=== PATIENT | male | born 2000 | race Caucasian/White ===

== ENCOUNTER 2024-02-22 21:26 | Inpatient (IN) | payer BC, SELFPAY ==
[2024-02-22 17:49] VITALS: BP 163/94; BMI 43.5
[2024-02-22 18:11] LABS: % Basophils 0.4 % (0-2); % Eosinophils 0.3 % (0-6); % Immature Granulocytes 0.9 % (0-0.5); % Lymphocytes 9.4 % (20.5-51.1); % Monocytes 9.1 % (1.7-9.3); % Neutrophils 79.9 % (42.2-75.2); Absolute Basophils 0.1 10^3/uL (0-0.2); Absolute Eosinophils 0.1 10^3/uL (0-0.7); Absolute Immature Granulocytes 0.2 10^3/uL (0-0.05); Absolute Lymphocytes 1.7 10^3/uL (1.2-3.4); Absolute Monocytes 1.6 10^3/uL (0.1-0.6); Absolute Neutrophils 14.1 10^3/uL (1.4-6.5); Hemoglobin 14.2 g/dL (13.0-18.0); Mean Corpuscular Hgb 29.8 pg (27.0-31.0); Mean Corpuscular Volume 90.3 fL (80.0-94.0); Mean Platelet Volume 12.2 fL (7.4-10.4); Nucleated Red Blood Cells % 0 % (-); Platelet Count 294 10^3/uL (130-400); Red Blood Cell Count 4.76 10^6/uL (4.70-6.10); Red Cell Dist. Width 12.9 % (11.5-14.5); White Blood Cell Count 17.6 10^3/uL (4.8-10.8)
[2024-02-22 18:20] LABS: ALT (SGPT) 48 U/L (0-50); AST (SGOT) 48 U/L (17-59); Albumin 3.6 g/dl (3.5-5.0); Alkaline Phosphatase 95 U/L (38-126); Blood Urea Nitrogen 14 mg/dl (9-20); Carbon Dioxide 25 mmol/L (22-30); Chloride 102 mmol/L (98-107); Estimated Creatinine Clearance > 125 ml/min; Glucose 129 mg/dl (70-99); Potassium 4.8 mmol/L (3.5-5.1); Sodium 134 mmol/L (135-145); Total Bilirubin 1.4 mg/dl (0.2-1.3); Total Protein 6.2 g/dl (6.3-8.2); eGFR > 60.00
--- NOTE | 2024-02-22 20:11 | ED.GENMED ---
History of Present Illness
General
Chief Complaint: Breathing Problem
Source: patient
Exam Limitations: none
Time Seen by Provider: 02/22/24 19:50
Travel History
Have you had any contact with someone who has COVID-19?: No
Do you have any symptoms of coronavirus? Fever > 100 degrees, chills, cough, shortness of breath, sore throat, loss of taste or smell, muscle aches, or headache?: No
History of Present Illness
History of Present Illness:
This is a 23 year old male that comes in with c/o SOB. States that he started 2 weeks ago with feeling at night that he was wheezing and crackling in his lungs. States that he went to and was told that he had Bronchitis and place on Zithromax and
a steroid taper. States that he is feeling worse. States that he is very SOB. States that he finished the Z-pack a week ago. States that he has had a fever with chills, SOB and cough, diarrhea. Denies any chest pain, abd pain, nausea, vomiting,
headache, dizziness, urinary burning.
Past History
Past History
ED Past Medical History: None
ED Past Surgical History: None
Social History
Tobacco: Vaping
Alcohol: Occasional
Drug: None
Personal: Single
Living: with family
Employment: Employed
Review of Systems
Review of Systems
All Other Systems: ROS reviewed and negative except as documented in HPI and ROS
Constitutional: Reports fever and chills
EENT: Reports no symptoms
Respiratory: Reports cough and trouble breathing
Cardiac: Denies chest pain
ABD/GI: Reports diarrhea; Denies abdominal pain, nausea or vomiting
: Reports no symptoms; Denies dysuria, frequency or urgency
Musculoskeletal: Reports no symptoms
Skin: Reports no symptoms
Neurological: Reports no symptoms; Denies dizzy or headache
Psychiatric: Reports no symptoms
Phy Exam
General Physical Exam
General Presentation: mild distress
General age: appears stated age
General Skin: cool and other (Clammy)
General Habitus: obese
General Mental: alert
General Hydration: appears well hydrated
ENT Exam
ENT Exam: TM's normal, pharynx normal and neck supple
Eye Exam
Eye Exam: EOMI
Cardiovascular Exam
Cardiovascular Exam: no edema, no murmur, normal peripheral pulses and tachycardia
Pulmonary Exam
Pulmonary Exam: no rales, chest non tender, no crackles, no rhonchi and other (faint exp wheezing right sided, Cough noted)
Gastrointestinal Exam
Gastrointestinal Exam: normal bowel sounds, non tender, soft, no organomegaly, no pulsatile mass, non distended and other (Obese)
Musculoskeletal Exam
Musculoskeletal Exam: full ROM and no edema
Skin Exam
Skin Exam: normal color, warm/dry, no rash and no petechia
Psychiatric Exam
Psychiatric Exam: normal mood/affect
Course
Orders/Labs/Results
Orders:
Orders
02/22/24 17:48
CR Chest - 2 Views Urgent
Comment:
Reason For Exam: shortness of breath
02/22/24 17:53
EKG [Electrocardiogram (*1)] Urgent
Reason for Study: Shortness of Breath
EKG- Treatment ONCE
02/22/24 18:01
Complete Blood Count/With Diff Urgent
Comprehensive Metabolic Panel Urgent
02/22/24 20:10
LevoFLOXacin 500 MG/100 ML [Levaquin] 500 mg in 100 ml IV NOW
02/22/24 20:38
0.9% Sodium Chloride 1000 ml [Nss] 1,000 ml IV BOLUS
Acetaminophen [Tylenol] 1,000 mg PO NOW STA
02/22/24 20:45
Admit/Transfer Patient As Directed
Co-Sign Provider:
Level of Care: Inpatient admission
Assign to:: Telemetry
Physician / Group: Uziel
Diagnosis: Pneumonia, Sepsis
Reason for Telemetry: Arrhythmia
Date to Stop Telemetry: 02/25/24
Time to Stop Telemetry: 11:00
Reason for Hospitalization: Pneumonia, Sepsis
Expected length of stay greater than two midnights?: Yes
ELOS- Estimated Length of Stay in days: 3
I certify the patient meets the requirements for IP care: Yes
02/22/24 20:46
Code Status As Directed
Resuscitation Status: Full Code
02/22/24 20:51
COVID-19 Antigen Urgent
Source: Nasal Swab
Lactic Acid Urgent
Blood Culture Q30M
BABAK Source: Blood/Venous
Specimen Description:
Blood Culture Q30M
BABAK Source: Blood/Venous
Specimen Description:
Influenza A+B Rapid Molecular Urgent
BABAK Source: Nasal Swab
Specimen Description:
02/22/24 23:00
0.9% Sodium Chloride 1000 ml [Nss] 1,000 ml IV 150 mls/hr
Acetaminophen [Tylenol] 650 mg PO Q4HPRN PRN
Albuterol Nebs [Ventolin Nebules] 2.5 mg INH R Q4HPRN PRN
Ketorolac [Toradol] 15 mg IV Q6HPRN PRN
Promethazine/Codeine [Phenergan with Codeine Syrup] 5 ml PO Q4HPRN PRN
02/22/24 23:00
TSH Reflex To Free T4 Routine
Legionella Urinary Antigen Routine
BABAK Source: Urine
Specimen Description:
Sputum Culture [Respiratory Culture/Gram Stain] Routine
BABAK Source: Sputum
Specimen Description:
Strep pneumoniae Antigen Routine
BABAK Source: Urine
Specimen Description:
Activity As Directed
Activity Level: Ambulate
EKG with chest pain [ECG as needed] As Directed
ECG as needed for:: Chest Pain
I/O [Intake/ Output] As Directed
Frequency: Per unit guidelines
Vital Signs As Directed
Frequency: Per unit guidelines
Chest PT [Rx Chest Pt] [RESP] Routine
Special Instructions: BID
Oxygen Therapy [O2 Therapy] [RESP] Routine
Titrate/Wean O2 to maintain O2 sat greater than (%): 94
DX Deep Vein Thrombosis Video Routine
02/23/24 02:00
Piperacillin/Tazo 4.5 Gram [Zosyn] 4.5 gram in 100 ml IV Q6H
02/23/24 Breakfast
Regular
At Your Request: Full Participation
Basic Metabolic Panel IN AM
Complete Blood Count/No Diff IN AM
LFT [Zzwjq-Kpjw-Ogbolhi] IN AM
02/23/24 08:00
Guaifenesin [Mucinex] 1,200 mg PO Q12
02/23/24 18:00
Enoxaparin Sodium [Lovenox] 40 mg SC QPM
02/25/24 11:00
DC Protocol for Telemetry ONCE
Abnormal Lab Results
02/22/24
18:01
WBC 17.6 H 10^3/uL
(4.8-10.8)
MPV 12.2 H fL
(7.4-10.4)
Abs Immat Gran (auto) 0.2 H 10^3/uL
(0-0.05)
Absolute Neuts (auto) 14.1 H 10^3/uL
(1.4-6.5)
Absolute Monos (auto) 1.6 H 10^3/uL
(0.1-0.6)
Immature Gran % 0.9 H %
(0-0.5)
Neutrophils % 79.9 H %
(42.2-75.2)
Lymphocytes % 9.4 L %
(20.5-51.1)
Sodium 134 L mmol/L
(135-145)
Glucose 129 H mg/dl
(70-99)
Total Bilirubin 1.4 H mg/dl
(0.2-1.3)
Total Protein 6.2 L g/dl
(6.3-8.2)
02/22/24 18:01
02/22/24 18:01
Leukocytosis, glucose nonfasting. lactic acid 1.2
Vital Signs
Initial and Last Documented VS:
Initial Vital Signs
Temp Pulse Resp BP Pulse Ox
99.5 F 144 16 163/94 96
02/22/24 17:49 02/22/24 17:49 02/22/24 17:49 02/22/24 17:49 02/22/24 17:49
Last Documented Vital Signs
Temp Pulse Resp BP Pulse Ox
98.3 F 127 24 156/101 95
02/22/24 23:02 02/22/24 23:02 02/22/24 23:02 02/22/24 23:02 02/22/24 23:02
MDM/Problems Addressed
Differential Diagnosis Includes:
PNA,
MDM/Problems Addressed:
This is a 23 year old male that comes in with SOB. States that he has been sick for 2 weeks with wheezing and Crackling. States that he went to and was told that he had Bronchitis. States that he as given Zithromax and steroid taper. States that
he is feeling worse ad is SOB with a cough.
Will get labs and X-ray.
Explained to patient that he will be admitted. Explained that he has an upper and lower lobe Pneumonia. Will start on IV antibiotics and admit. Hospitalist notified.
Chronic conditions affecting care:
NA
Acute Exacerbation and/or Progression of Chronic Illness:
NA
*Radiology
Radiology exam reviewed: radiology read reviewed (Chest- Findings suggesting moderate right upper and lower lobe Pneumonia. Clinical and laboratory correlation recommended. Mild cardiomegaly. This may be projectional. The patient was imaged in a
slightly lordotic position. )
*Pulse Oximetry
Patient hypoxic: no
*EKG
Heart Rate: 142
Rate: tachycardiac
Rhythm: sinus tachycardia
[place]: normal axis
Interval: normal interval
QRS Pattern: normal QRS
Ischemia: T-wave inversion (aVL, V4, V5, V6)
*Financial Analyst Accountant Interpretation
Rate: tachycardiac
Interpretation: normal
Heart Rate: 139
Rhythm: sinus tachycardia
*Critical Care Note
Total Time (30-74mins, 75-104mins- exclusive of procedures): Not Applicable
ED Attending Note
-
Portions of this chart may have been created with voice recognition software.� Occasional wrong word or��sound alike� substitutions may have occurred due to the inherent limitations of voice recognition software.
Discharge Plan
Departure
Patient Disposition: Admit
Date of Disposition: 02/22/24
Time of Disposition: 20:23
Admit to: Telemetry
Presentation/result/management discussed w/ accepting MD/DO: Hospitalist
Patient with high blood pressure during this ER visit?: Yes
Condition: Good
Discharge Problem:
right upper and lower lobe Pneumonia
Interventions
Interventions:
*Risk Screen - Suicide Last Done: 02/22/24 17:49
*General Assessment Last Done: 02/22/24 17:49
*Neglect/Abuse Screening Last Done: 02/22/24 21:03
ED- Fall Risk Assessment Last Done: 02/22/24 22:44
*ED COVID-19 Vaccine History Last Done: 02/22/24 17:49
*Nursing Disposition Last Done: 02/22/24 22:44
ED- Cardiac Assessment Last Done: 02/22/24 21:58
ED- Pulmonary Assessment Last Done: 02/22/24 21:58
Discharge Date and Time
Discharge Date/Time: 02/22/24 22:45
[2024-02-22 20:18] VITALS: BP 143/99
--- NOTE | 2024-02-22 20:51 | HPS.HSE ---
Family Physician
-
Family Physician: * NONE
Chief Complaint
-
Fever, Cough, Body Aches
History of Present Illness
Patient is a 23y M with no significant PMH who presents to ED complaining of fevers, chills, cough and malaise. Patient states that his symptoms started about 2 weeks ago. He notes that his symptoms are worse at night and in the AM. He has had
difficulty sleeping due to cough and dyspnea when attempting to lie flat. Patient states that his girlfriend tested positive for influenza 2 weeks ago as well. He was seen at an Urgent Care and diagnosed with bronchitis. He was prescribed
azithromycin and prednisone and completed both - last doses were about one week ago. Patient states that he felt improved from about 2 days; however, his symptoms then returned.
Patient presents to the ED for continued / worsening symptoms despite outpatient therapy.
He denies any recent travel.
He does use a vape daily. 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
Medical History
Past Medical History
Past Medical History: Reports Other
Additional Past Medical History:
Obesity
Pneumonia at 8 years old requiring hospitalization - ? laterality
Past Surgical History: Reports None
Social History
Tobacco: Vaping (Daily)
Alcohol: Occasional
Drug: None
Family History
Family History: Other (Father: HTN Mother: CVA)
Allergies / Home Medications
Allergies reflects when Allergies were last updated in [employer].
Home Medications with original date entered in [employer]
Allergy/Medication List:
Allergies
Allergy/AdvReac Type Severity Reaction Status Date / Time
No Known Allergies Allergy Verified 06/22/22 16:27
Home Medications
No Meds [No Current Medications] 02/22/24
Review of Systems
-
History Source: Patient
A 12 point ROS was completed and negative except as noted: Yes
Constitutional: Reports Fever, Fatigue and Chills
EENT: Reports Sore Throat and Runny Nose
Respiratory: Reports Cough and Trouble Breathing
Cardiac: Reports Diaphoresis; Denies Chest Pain or Palpitations
Abdomen/GI: Denies Abdominal Pain, Nausea, Vomiting or Diarrhea
: Denies Dysuria or Frequency
Musculoskeletal: Reports Muscle Pain; Denies Joint Pain or Edema
Neurological: Reports Headache; Denies Dizzy
Psych: Denies Depression or Anxiety
Physical Exam
Vital Signs
Vital Signs
Temp Pulse Resp BP Pulse Ox
101.9 F H 140 28 143/99 96
02/22/24 20:18 02/22/24 20:18 02/22/24 20:18 02/22/24 20:18 02/22/24 20:18
Physical Exam
General: Other (23y M in mild distress due to cough and dyspnea.)
HEENT: Other (Thick neck. No adenopathy appreciated.)
Respiratory: Other (Coarse rhonchi on the R about 2/3 up. No wheezes.)
Cardiac: S1/S2, Regular Rhythm and Tachycardia; No Murmur
GI: Soft, Non Tender, Non Distended and Normal Bowel Sounds
Musculoskeletal: No Clubbing, No Cyanosis and No Edema
Neuro: AO x 3
Laboratory Results
-
02/22/24 18:01
02/22/24 18:01
Laboratory Results
Total Bilirubin 1.4 mg/dl (0.2-1.3) H 02/22/24 18:01
AST 48 U/L (17-59) 02/22/24 18:01
ALT 48 U/L (0-50) 02/22/24 18:01
Alkaline Phosphatase 95 U/L (38-126) 02/22/24 18:01
Impression/Plan
-
A/P: Patient is a 23y M with no significant PMH who presents to ED complaining of fevers / chills, cough and dyspnea x 2 weeks.
Right Pneumonia
Sepsis secondary to the above
- Admit for further evaluation and treatment.
- Patient presents with temp = 101.9, HR = 140, RR = 28 and WBC = 17.6 with CXR and clinical history consistent with pneumonia.
- IV abx with Zosyn for now.
- Follow up culture data / antigen testing, etc and adjust regimen as needed.
- Check COVID / influenza status now.
- Suspect initial influenza with ? secondary bacterial pneumonia - especially given known sick contact and clinical course.
- Supportive measures including mucolytics, nebs, supplemental O2 if needed, etc.
- IVF support, antipyretics.
- Follow for clinical improvement and transition to PO abx regimen when appropriate.
- Monitor for any new / worsening symptoms.
Morbid Obesity
- Affects all aspects of care and specifically increase risks of viral pneumonias, respiratory compromise, etc.
- Encourage healthy diet and increased activity with goal of weight loss.
Vaping
- As noted above - affects overall respiratory health and increases risks of severe disease in setting of pulmonary infections, etc.
- Encourage attempts at cessation.
Abnormal Cardiac Silhouette
- CXR with rounded appearance of cardiac silhouette. No prior for comparison.
- Current symptoms, labs, etc seem clearly consistent with infectious process as noted above.
- Consider outpatient evaluation including Echo, etc for further evaluation.
DVT Prophylaxis: Lovenox
Code Status: Full
[2024-02-22] MEDS: TYLENOL 1000 MG PO (20:52)
[2024-02-22] MEDS: NSS 1000 IV ×2 (20:56→23:17)
[2024-02-22] MEDS: LEVAQUIN 100 IV (20:56)
[2024-02-22 21:13] LABS: Lactic Acid 1.2 mmol/L (0.7-2.0)
[2024-02-22 21:32] LABS: COVID-19 Antigen Negative (Negative)
[2024-02-22 23:00] VITALS: BMI 44.2
[2024-02-22 23:02] VITALS: BP 156/101
[2024-02-22] MEDS: PHENERGAN WITH CODEINE SYRUP 5 ML PO (23:50)
[2024-02-23] MEDS: NICORETTE 2 MG PO ×6 (00:05→23:20)
[2024-02-23] MEDS: ZOSYN 100 IV ×4 (01:25→19:49)
[2024-02-23 03:28] VITALS: BP 165/95
[2024-02-23] MEDS: TORADOL 15 MG IV (03:37)
[2024-02-23] MEDS: VENTOLIN NEBULES 2.5 MG INH ×2 (03:45→17:58)
[2024-02-23] MEDS: PHENERGAN WITH CODEINE SYRUP 5 ML PO ×2 (04:14→16:13)
--- NOTE | 2024-02-23 04:42 | PTCARENOTE ---
Pt admitted to unit from ED. Pt ambulated self with nursing staff to bed. [id number]. Pt reported 'I was short of breath laying flat on my couch and when I move around at home then it resolves.' Pt also reported pain of 'my diaphragm because of my
coughing. It feels like drowning because of fluid in my lungs.' Pt reports on admission pain meets acceptable level. Strong, dry, frequent cough. PRN cough medication administered. Pt denies SOB. Pt oriented to room with call myers in reach. Plan of
care ongoing.
[2024-02-23] MEDS: NSS 1000 IV ×5 (06:27→21:52)
[2024-02-23 07:23] LABS: Glucose - Point of Care 102 mg/dl (70-99)
[2024-02-23 07:28] LABS: Hematocrit 37.5 % (39.0-52.0); Hemoglobin 12.7 g/dL (13.0-18.0); Mean Corp Hgb Conc. 33.9 g/dL (33.0-37.0); Mean Corpuscular Volume 88.7 fL (80.0-94.0); Mean Platelet Volume 12.7 fL (7.4-10.4); Platelet Count 242 10^3/uL (130-400); Red Blood Cell Count 4.23 10^6/uL (4.70-6.10); Red Cell Dist. Width 13.2 % (11.5-14.5); White Blood Cell Count 15.6 10^3/uL (4.8-10.8)
[2024-02-23 07:30] VITALS: BP 121/91
[2024-02-23 08:24] LABS: TSH Reflex To Free T4 1.71 uIU/ml (0.47-4.68)
[2024-02-23 08:25] LABS: ALT (SGPT) 36 U/L (0-50); AST (SGOT) 29 U/L (17-59); Alkaline Phosphatase 82 U/L (38-126); Blood Urea Nitrogen 9 mg/dl (9-20); Calcium 8.6 mg/dl (8.4-10.2); Carbon Dioxide 22 mmol/L (22-30); Chloride 104 mmol/L (98-107); Direct Bilirubin 0.7 mg/dl (0.0-0.4); Estimated Creatinine Clearance > 125 ml/min; Glucose 110 mg/dl (70-99); Potassium 4.2 mmol/L (3.5-5.1); Sodium 135 mmol/L (135-145); Total Bilirubin 1.8 mg/dl (0.2-1.3); Total Protein 5.6 g/dl (6.3-8.2); eGFR > 60.00
[2024-02-23] MEDS: MUCINEX 1200 MG PO ×2 (08:51→19:49)
[2024-02-23 11:00] VITALS: BP 139/96
[2024-02-23] MEDS: TYLENOL 650 MG PO ×3 (12:02→22:09)
--- NOTE | 2024-02-23 14:39 | CM ---
Patient seen at bedside with physician. Patient indicated that he lived with his mother and father in a 2 story home. Patient has no DME at home. 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 Patient uses the [facility] in [place] and he is independent of
ALD's and IADL's. Patient family present and supportive. Patient indicated that he is planning to go home with no needs. CM with no needs anticipated.
Plan; home with no needs.
[2024-02-23 15:30] VITALS: BP 143/93
[2024-02-23] MEDS: LOVENOX 40 MG SC (17:48)
--- NOTE | 2024-02-23 18:48 | W.PN.UPDATE ---
Update Note
Progress Note Update
I received a test from patient's nurse at 6:22 PM stating that patient's heart rate was 140s for the last hour, but was tachycardic all day in the 120s, and that he had just received albuterol for shortness of breath (the HR 140s had started prior
to the Albuterol). Patient sinus tach on tele. At time of this event, patient afebrile, blood pressure noted to be 97/67, HR in the 140s, oxygen saturation 95% on room air.
2 liters of IV fluids bolus wide open ordered.
I saw and examined the patient. He reported more cough and wheezing. Brown-colored sputum on napkin. He denied chest pain or any personal or family history of blood clots. Well criteria for Pulmonary Embolism was 1.5 -- low probability for PE. On
exam some wheezing and rhonchi. Ordered D-Dimer, stat EKG, stat CXR, troponins, CBC, CMP, Mag, Phos, Lactic Acid.
If D-Dimer elevated then will need to consider CTA to check for PE.
Discussed with both daytime and nighttime nurse and they will be in touch with night house provider to follow-up on the patient and the above work-up.
[2024-02-23 19:09] LABS: % Basophils 0.2 % (0-2); % Eosinophils 0.1 % (0-6); % Immature Granulocytes 0.7 % (0-0.5); % Lymphocytes 6.7 % (20.5-51.1); % Monocytes 8.8 % (1.7-9.3); % Neutrophils 83.5 % (42.2-75.2); Absolute Immature Granulocytes 0.1 10^3/uL (0-0.05); Absolute Lymphocytes 1.1 10^3/uL (1.2-3.4); Absolute Monocytes 1.5 10^3/uL (0.1-0.6); Absolute Neutrophils 13.8 10^3/uL (1.4-6.5); Hematocrit 35.9 % (39.0-52.0); Hemoglobin 12.4 g/dL (13.0-18.0); Mean Corp Hgb Conc. 34.5 g/dL (33.0-37.0); Mean Corpuscular Volume 86.9 fL (80.0-94.0); Mean Platelet Volume 12.3 fL (7.4-10.4); Nucleated Red Blood Cells % 0 % (-); Platelet Count 263 10^3/uL (130-400); Red Blood Cell Count 4.13 10^6/uL (4.70-6.10); Red Cell Dist. Width 13.1 % (11.5-14.5); White Blood Cell Count 16.5 10^3/uL (4.8-10.8)
[2024-02-23 19:20] LABS: Lactic Acid 1.2 mmol/L (0.7-2.0)
[2024-02-23 19:22] LABS: D-Dimer 1.01 ug/mlFEU (0.00-0.50)
[2024-02-23 19:24] VITALS: BP 102/70
--- NOTE | 2024-02-23 19:26 | PTCARENOTE ---
patient heart rate sustaining in 140's around 1745. pt reports difficulty breathing. respiratory notified for prn breathing treatment. MD notified about pt current condition. pt denies any chest pain at this time. pt coughing up brown tinged spit.
MD came up to assess pt and ordered received. continue to monitor
[2024-02-23 19:28] LABS: ALT (SGPT) 35 U/L (0-50); AST (SGOT) 32 U/L (17-59); Albumin 2.9 g/dl (3.5-5.0); Alkaline Phosphatase 83 U/L (38-126); Blood Urea Nitrogen 10 mg/dl (9-20); Calcium 8.2 mg/dl (8.4-10.2); Carbon Dioxide 19 mmol/L (22-30); Chloride 101 mmol/L (98-107); Estimated Creatinine Clearance > 125 ml/min; Glucose 128 mg/dl (70-99); Magnesium 1.6 mg/dl (1.6-2.3); Phosphorus 3.5 mg/dl (2.5-4.5); Potassium 3.7 mmol/L (3.5-5.1); Sodium 129 mmol/L (135-145); Total Bilirubin 1.6 mg/dl (0.2-1.3); Total Protein 5.5 g/dl (6.3-8.2); eGFR > 60.00
[2024-02-23 23:30] VITALS: BP 147/94
[2024-02-24] VITALS (9 sets, daily range): BP systolic 126–150; BP diastolic 77–132
[2024-02-24] MEDS: TYLENOL 650 MG PO ×4 (02:16→23:06)
[2024-02-24] MEDS: NICORETTE 2 MG PO ×3 (02:16→12:54)
[2024-02-24] MEDS: ZOSYN 100 IV ×2 (02:17→11:08)
--- NOTE | 2024-02-24 02:26 | W.PN.UPDATE ---
Update Note
Progress Note Update
D-Dimer noted of 1.1, CT chest ordered to rule out PE. CT chest neg for PE.
Patient continuos to have cough and fever, elevated WBC's, CT chest shows B/L pneumonia, severe on Right.
Patient seen and evaluated. reports cough and mild right side anterior lower chest pain due to cough started since two weeks.
mild shortness of breath lying flat.
Troponin elevated likely due to tachycardia, Sepsis?
Will consult ID.
[2024-02-24 03:15] LABS: Troponin I 0.896 ng/ml
[2024-02-24] MEDS: NSS 1000 IV ×2 (03:53→12:12)
[2024-02-24 07:01] LABS: Hemoglobin 12.5 g/dL (13.0-18.0); Mean Corp Hgb Conc. 33.8 g/dL (33.0-37.0); Mean Corpuscular Hgb 29.9 pg (27.0-31.0); Mean Corpuscular Volume 88.5 fL (80.0-94.0); Mean Platelet Volume 13.1 fL (7.4-10.4); Platelet Count 258 10^3/uL (130-400); Red Blood Cell Count 4.18 10^6/uL (4.70-6.10); Red Cell Dist. Width 13.1 % (11.5-14.5); White Blood Cell Count 17.7 10^3/uL (4.8-10.8)
[2024-02-24 07:30] LABS: ALT (SGPT) 39 U/L (0-50); AST (SGOT) 49 U/L (17-59); Albumin 2.9 g/dl (3.5-5.0); Alkaline Phosphatase 85 U/L (38-126); Blood Urea Nitrogen 8 mg/dl (9-20); Calcium 8.3 mg/dl (8.4-10.2); Carbon Dioxide 17 mmol/L (22-30); Chloride 106 mmol/L (98-107); Estimated Creatinine Clearance > 125 ml/min; Glucose 109 mg/dl (70-99); Magnesium 1.7 mg/dl (1.6-2.3); Potassium 4.4 mmol/L (3.5-5.1); Sodium 131 mmol/L (135-145); Total Bilirubin 1.9 mg/dl (0.2-1.3); Total Protein 5.4 g/dl (6.3-8.2); eGFR > 60.00
[2024-02-24] MEDS: MUCINEX PO ×2 (11:08→11:17)
--- NOTE | 2024-02-24 11:51 | CON.ID ---
Consultation
-
Date/Time Consultation Requested: 02/24/24 6:14
Date/Time Consultation Performed: 02/24/24 11:52
Requesting Provider: Shelton LUCIANO
Performing Provider: Dr Leroy
Reason for Consultation: pneumonia, Febrile
Chief Complaint / Past History
Chief Complaint
Fever, Cough, Body Aches
History of Present Illness
Mr Mcmillan is a 23 year old male with past medical history notable for class 3 obesity who presented here for a two week history of fever, chills, cough and malaise. Symptoms are worse at night with + orthopnea. Girlfriend tested positive for
influenza 2 weeks ago. Patient went to urgent care a week ago, given azithromycin and predinsone, improved for about two days then progressively worsened. Of note patient vapes daily. 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
Since arrival here he has been spiking fevers to 102.7 - increasing fever curve despite zosyn, bp stable, currently saturating well on room air, wbc on arrival 17.6, today 17.7, hgb 12.5, plt 258, L shfift has increased since admission, eosinophlis
on the differential have declined, D-dimer 1.01, cr 0.8, lactic acid 1.2, he has developed a troponin leak currently 1.92 and a repeat is pending, t bili 1.9, ast 49, alt 39, alk phos 85, covid ag neg, CT chest PE study: no PE, bilateral pneumonia -
severe on the right, moderate mediastinal lymphadenopathy. Currently on zosyn, had a single dose of levaquin the evening of 02/21. Sputum culture ordered but not yet obtained, blood cultures x2 in progress, no growth to date. S pneumo and
legionella urine antigens were ordered but not yet done. Sputum culture ordered and has not yet been produced. Had a single dose of levaquin and has been maintained on zosyn since then. Fevers ongoing. ID is consulted for assistance with
management.
Past History
Additional Past Medical History:
pneumonia - age 8
Past Surgical History: None
Allergy History:
No Known Allergies Allergy (Verified 06/22/22 16:27)
Medications Reviewed: Yes
Social History
Tobacco: Vaping
Alcohol: Occasional
Drug: None
Family History
Family History: Not Pertinent
Review of Systems
Review of Systems
General: Fever and Chills
All systems: All other systems were reviewed and were negative
Vital Signs
Temp Pulse Resp BP Pulse Ox
100.1 F 141 17 126/77 95
02/24/24 11:25 02/24/24 11:25 02/24/24 11:25 02/24/24 11:25 02/24/24 11:25
Physical Exam
Physical Exam
Constitutional: No Acute Distress and Obese
Pharynx: Other (voice quite hoarse)
Cardiovascular: Regular Rate and S1/S2; Negative Murmur or Rub
Pulmonary: Clear, Symmetric and Other (chest sounds tight, coughing during my exam - mildly productive of purulent appearing sputum); Negative Wheezes, Rales or Rhonchi
Gastrointestinal: Soft, Non Tender, Non Distended and Normal Bowel Sounds
Skin: Warm and Dry; Negative Rash or Jaundice
Neurological: Awake
Lab / Diagnostic Study Results
02/24/24 06:27
02/24/24 06:27
Abs Immat Gran (auto) 0.1 10^3/uL (0-0.05) H 02/23/24 19:01
Absolute Neuts (auto) 13.8 10^3/uL (1.4-6.5) H 02/23/24 19:01
Absolute Lymphs (auto) 1.1 10^3/uL (1.2-3.4) L 02/23/24 19:01
Absolute Monos (auto) 1.5 10^3/uL (0.1-0.6) H 02/23/24 19:
Absolute Basos (auto) 0.0 10^3/uL (0-0.2) 02/23/24 19:
Immature Gran % 0.7 % (0-0.5) H 02/23/24 19:
Neutrophils % 83.5 % (42.2-75.2) H 02/23/24 19:
Lymphocytes % 6.7 % (20.5-51.1) L 02/23/24 19:
Monocytes % 8.8 % (1.7-9.3) 02/23/24 19:
Eosinophils % 0.1 % (0-6) 02/23/24 19:
Basophils % 0.2 % (0-2) 02/23/24 19:
Lactic Acid 1.2 mmol/L (0.7-2.0) 02/23/24 19:
Microbiology Results
Micro:
02/22/24 20:51 Blood Culture - Preliminary
Blood/Venous No Growth in 24 hours- Final report to follow
02/22/24 20:51 Blood Culture - Preliminary
Blood/Venous No Growth in 24 hours- Final report to follow
02/22/24 20:51 Influenza Types A & B (FABIAN) - Final
Nasal Swab Negative for Influenza A & B, NAAT
Negative results must be combined with clinical observations
and patient history.
Nucleic Acid Amplification test (NAAT)performed on the
[employer] platform.
Assessment / Plan
Bacterial Pneumonia
Class III Obesity
Vaping
- with recent probable diagnosis of influenza with a biphasic course (initially getting better, then worsening) I have particular concern for MRSA pneumonia
- sputum culture most sensitive test - mrsa pcr on nares would not change my management by itself in this scenario
- acapella - RT to assist with its use
- agree with urine antigens for s pneumo and legionella - notified RN of these orders
- blood cultures x2 in progress - no growth to date
- vaping a risk factor for severe pneumonia/pneumonitis; outpatient steroids also a risk - course was reportedly short, BMI also a risk
- has been hyperglycemic - check a1c
- doses adjusted for BMI/renal function; QTc is long
- start vancomycin, cefepime, doxycycline
- follow clinically
--- NOTE | 2024-02-24 12:22 | CON.PUL ---
Consultation
Consultation Request
Date/Time Consultation Requested: 02/24/24
Date/Time Consultation Performed: 02/24/24
Performing Provider: Alondra
Reason for Consultation: PNA, severe sepsis
Medical History
-
History of Present Illness:
Patient is a 23 year old M with no significant PMH who presents to ED complaining of fevers, chills, cough and malaise. Patient states that his symptoms started about 2 weeks ago. Patient states that his girlfriend tested positive for influenza
2 weeks ago as well. He was seen at an Urgent Care and diagnosed with bronchitis. He was prescribed azithromycin and prednisone and completed both - last doses were about one week ago. Patient states that he felt improved from about 2 days;
however, his symptoms then returned.
Patient presents to the ED for continued / worsening symptoms despite outpatient therapy. Since admission, he has developed worsening acidosis, persistent fevers, diaphoresis.
CT showing dense extensive R sided PNA.
He does use a vape daily (past 2 years). Never smoked cigarettes. 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
No prior history of lung disease, denies family history.
Past Medical History
Past Medical History: Other (see list below)
Social History
Tobacco: Vaping
Alcohol: None
Drug: None
Family History
Family History: Reviewed & Not Pertinent
Allergies / Home Medications
Allergies
Allergy/AdvReac Type Severity Reaction Status Date / Time
No Known Allergies Allergy Verified 06/22/22 16:27
Home Medications
�Medication �Instructions �Recorded �Confirmed �Last Taken �Type
ibuprofen 200 mg tablet 400 mg PO Q6H PRN mild pain 02/22/24 02/22/24 02/22/24 History
promethazine-DM 6.25 mg-15 mg/5 mL 5 ml PO Q6HPRN PRN cough 02/22/24 02/22/24 02/22/24 History
oral syrup
Review of Systems
Vitals / Labs / Diagnostic Testing
Vital Signs
Temp Pulse Resp BP Pulse Ox
100.1 F 141 17 126/77 95
02/24/24 11:25 02/24/24 11:25 02/24/24 11:25 02/24/24 11:25 02/24/24 11:25
Lab Data
02/24/24 06:27
02/24/24 06:27
Microbiology
02/22/24 20:51 Blood/Venous Blood Culture - Preliminary
No Growth in 24 hours- Final report to follow
02/22/24 20:51 Blood/Venous Blood Culture - Preliminary
No Growth in 24 hours- Final report to follow
02/22/24 20:51 Nasal Swab Influenza Types A & B (FABIAN) - Final
Negative for Influenza A & B, NAAT
Negative results must be combined with clinical observations
and patient history.
Nucleic Acid Amplification test (NAAT)performed on the
[employer] platform.
Diagnostic Testing:
Physical Exam
-
HEENT: Normocephalic, Anicteric and Moist Mucous Membranes
Cardiovascular: S1/S2 and Regular Rhythm
Respiratory: Rales and Non-Labored Respirations
GI: Soft, Non Distended and Non Tender
Neurology: Awake, Alert, Oriented, AO x 3, Tremors and Other (anxious appearing)
Skin: Warm and Other (diaphoretic)
General: Other (NAD, anxious appearing, obese)
Assessment
-
Patient is a 23 year old M with no significant PMH who presents to ED complaining of fevers, chills, cough and malaise. Patient states that his symptoms started about 2 weeks ago. Patient states that his girlfriend tested positive for influenza
2 weeks ago as well. Since admission, he has developed worsening acidosis, persistent fevers, diaphoresis. CT showing dense extensive R sided PNA. We are consulted for severe PNA.
Acute R sided PNA, progressive/extensive
Acute hypoxic resp failure
SOB
Cough
Fevers
Leukocytosis
Metabolic acidosis
Elevated trops with suspect cardiomyopathy
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
Morbid obesity BMI 44
Vaping past 2 years
Plan
No oxygen was needed on admission, desaturating last few hours, now placed on 1L
Prior history of lung disease is not noted--
He does use a vape daily (past 2 years). Never smoked cigarettes.
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
No prior history of lung disease, denies family history.
CXR obtained indicating severe R sided PNA, not improving
CT reviewed as well with severe unilateral disease/with pleural sparring
Sputum culture pending
Will add MRSA screen which would be most likely 2 weeks post influenza illness
Flu neg, legionella/strep pending
COVID neg
Cardiomeg noted on CT, elevated trops
STAT ECHO order placed
Worsening acidosis, may spell for worsening/impending severe sepsis/shock
Currently on empiric IV abx
ID consult obtained
May need to move to IMU for further care
We discussed potential need for bronchoscopy if not improving
Weight loss measures recommended
Obesity contributing to respiratory symptoms
We will follow
Diagnostic Data
CXR 02/23/24- Grossly stable findings suggesting right-sided pneumonia.
02/22/24- Findings suggesting moderate right upper and lower lobe pneumonia. Mild cardiomegaly. This may be projectional. The patient was imaged in a slightly lordotic position.
CT Chest 02/23/24- There is no pulmonary embolism. There is no aortic dissection. There is no pneumothorax. There are no abnormal pleural or parenchymal masses. There is no pleural effusion.
There is severe diffuse airspace disease in the right upper and lower lobes greatest in the lower lobe and moderate left lower lobe concerning for pneumonia considering the asymmetry.
The mediastinum is normal. There is moderate mediastinal lymphadenopathy. The largest lymph node is tracheal and measures approximately 2.2 x 1.1 cm. There is no axillary lymphadenopathy. No significant osseous abnormalities are demonstrated. The
heart is mildly enlarged. There is a small hiatal hernia.
[2024-02-24] MEDS: VENTOLIN NEBULES 2.5 MG INH (12:44)
--- NOTE | 2024-02-24 12:47 | PHA.VAN.IN ---
Assessment
- Assessment
Renal Function: Appears similar to baseline
Concomitant Antimicrobials: cefepime, doxycycline
Plan
- Plan
Initial / Loading Dose: Vanc 1g Q6 x 3 doses as a divided loading dose
Maintenance Regimen: dosing by level
Monitoring: random - 02/24 0600
Given weight of 152kg and young age, will provide divided loading dose, which will provide total of 3g
Give first dose now then Q6 (at 1800 & 0000)
Will obtain random level after 3rd dose to assess if further loading required
Regimen adapted from the following study: [employer]. 2015 Jun;49(8):861-8. doi: 10.1177/1640719007505837
If level appropriate, will likely consider initiating Vanc 1250mg Q8H but will hold of on scheduling further dosing at this time
Pharmacokinetics Vancomycin I
- -
Patient Age: 23
Patient Sex: Male
Vancomycin Day #: 1
Indication: Pulmonary/Respiratory
Requesting Provider: Dr. Leroy
Pertinent Antimicrobial Allergies:
NKDA
Height / Weight:
Height 6 ft 1 in
Actual Weight 152.044 kg
Pertinent Past Medical History: BMI ~44
- Vital Signs / Lab Results
Temp Pulse Resp BP Pulse Ox
100.1 F 121 16 126/77 98
02/24/24 11:25 02/24/24 12:45 02/24/24 12:45 02/24/24 11:25 02/24/24 12:45
Lab Results - Hematology
02/22/24 02/23/24 02/23/24
18:01 06:51 19:01
WBC 17.6 H 15.6 H 16.5 H
02/24/24
06:27
WBC 17.7 H
Lab Results - Chemistry
02/22/24 02/23/24 02/23/24
18:01 06:51 19:00
BUN 14 9 10
Creatinine 1.1 1.0 0.9
Estimated Creat Clear > 125 > 125 > 125
Albumin 3.6 3.0 L 2.9 L
02/24/24
06:27
BUN 8 L
Creatinine 0.8
Estimated Creat Clear > 125
Albumin 2.9 L
02/22/24 02/23/24
20:51 19:01
Lactic Acid 1.2 1.2
Microbiology Results
02/22/24 20:51 Blood Culture - Preliminary
Blood/Venous No Growth in 24 hours- Final report to follow
02/22/24 20:51 Blood Culture - Preliminary
Blood/Venous No Growth in 24 hours- Final report to follow
02/22/24 20:51 Influenza Types A & B (FABIAN) - Final
Nasal Swab Negative for Influenza A & B, NAAT
Negative results must be combined with clinical observations
and patient history.
Nucleic Acid Amplification test (NAAT)performed on the
[employer] platform.
[2024-02-24] MEDS: VIBRAMYCIN 100 MG PO ×2 (12:51→19:48)
[2024-02-24] MEDS: VANCOCIN 200 IV ×2 (13:23→17:54)
[2024-02-24 14:18] LABS: Lactic Acid 1.5 mmol/L (0.7-2.0)
[2024-02-24 14:21] LABS: ALT (SGPT) 40 U/L (0-50); AST (SGOT) 62 U/L (17-59); Alkaline Phosphatase 84 U/L (38-126); Blood Urea Nitrogen 8 mg/dl (9-20); Calcium 8.1 mg/dl (8.4-10.2); Carbon Dioxide 19 mmol/L (22-30); Chloride 105 mmol/L (98-107); Estimated Creatinine Clearance > 125 ml/min; Glucose 124 mg/dl (70-99); Potassium 3.9 mmol/L (3.5-5.1); Sodium 131 mmol/L (135-145); Total Bilirubin 1.9 mg/dl (0.2-1.3); Total Protein 5.6 g/dl (6.3-8.2); eGFR > 60.00
[2024-02-24 14:38] LABS: Procalcitonin 0.44 ng/ml (0.0-0.25)
--- NOTE | 2024-02-24 15:32 | CM ---
Patient out of room for testing per nursing. CM will continue to follow for discharge planning needs.
Plan; home with VN vs home with no needs pending further medical work up.
[2024-02-24] MEDS: STERILE WATER FOR INJECTION 10 ML IV ×2 (15:42→21:25)
[2024-02-24] MEDS: MAXIPIME 2000 MG IV ×2 (15:43→21:25)
--- NOTE | 2024-02-24 16:28 | CON.CAR ---
Addendum entered and electronically signed by Cristiano Stanley MD 02/24/24 17:42:
I saw and examined the patient.
The Balance Wheel Arm Burnisher's note was reviewed and I agree with the note.
Comment: Briefly, 23-year-old man with no significant past medical history presenting with several weeks of fever, cough and dyspnea being treated for sepsis secondary to presumed respiratory tract infection with broad-spectrum antibiotics
Underwent transthoracic echo today which showed dilated left ventricle and severely reduced left ventricular systolic function (EF 10-15%)
No personal history of cardiovascular disease and no family history of cardiomyopathy. Patient tells me he only first developed symptoms within the last few weeks. Clinical scenario could be consistent with a viral myocarditis.
Warm and well-perfused on exam, no overtly volume overloaded
Telemetry reviewed showing sinus tachycardia with heart rates consistently into the 120s and 130s, no ventricular ectopy observed
Labs reviewed, lactate and Cr within normal limits
Troponin was found to be elevated, rising to 3.3, would continue to trend to peak - will start aspirin empirically
Start losartan for afterload reduction
Avoid beta-dania for now with concern for precipitating cardiogenic shock
Stop IV fluids
Start IV Lasix as patient tells me he is unable to lay flat at this time
Tentative plan for left and right heart catheterization tomorrow morning
May ultimately require inotrope or mechanical support - explained to patient and father at bedside that transfer to higher level of care may be necessary
Original Note:
Consultation
Consultation Request
Date/Time Consultation Performed: 02/24/24
Requesting Provider: Dr. Tomlinson
Performing Provider: Maddie Stuart PA-C for Dr. Stanley
Reason for Consultation: EF 10%
Medical History
-
Chief Complaint: cough, SOB
History of Present Illness:
Patient is a 23-year-old male without significant past medical history who presented to with persistent cough. States 2 weeks ago his girlfriend tested positive for flu. He then developed symptoms. He was seen in urgent care and was treated
for bronchitis. He states improved for several days, however then worsened again. He states he is coughing all the time. He reports orthopnea/worsening cough with laying flat. He denies recent weight gain, lower extremity edema, abdominal
bloating, chest pain. Echocardiogram completed today shows new EF 10 to 15%. Troponin up to 3. Cardiology consulted for evaluation. Flu and COVID-negative, however remains with fever. Chest CT with severe R PNA.
PMH:
obesity
tobacco use - vapes
binge drinker
Past Medical History
Past Medical History: Other (in HPI)
Social History
Tobacco: Vaping
Alcohol: Binge Drinker
Employment: Employed
Family History
Family History: CAD (heart disease)
Allergies / Home Medications
Allergy/AdvReac Type Severity Reaction Status Date / Time
No Known Allergies Allergy Verified 06/22/22 16:27
�Medication �Instructions �Recorded �Confirmed �Type
ibuprofen 200 mg tablet 400 mg PO Q6H PRN mild pain 02/22/24 02/22/24 History
promethazine-DM 6.25 mg-15 mg/5 mL 5 ml PO Q6HPRN PRN cough 02/22/24 02/22/24 History
oral syrup
Review of Systems
-
History Source: Patient and Family
All other systems: Negative unless noted
Physical Exam
Vital Signs
Temp Pulse Resp BP Pulse Ox
102.2 F H 132 18 136/78 95
02/24/24 15:59 02/24/24 15:15 02/24/24 15:15 02/24/24 15:15 02/24/24 15:15
Lab Results
02/24/24 06:27
02/24/24 14:00
Troponin I 3.350 ng/ml H* D 02/24/24 12:34
Physical Exam
General: Other (diaphoretic. obese. cough)
HEENT: Normocephalic, Anicteric and Moist Mucous Membranes
Respiratory: Other (no audible wheezes)
Cardiac: Other (tachycardic on tele)
GI: Non Distended
Musculoskeletal: No Clubbing, No Cyanosis and No Edema
Skin: Warm and Dry
Neuro: AO x 3
Impression / Plan
-
Primary Gate Shear Operator: none
Assessment:
Presentation with SOB
Fever, Leukocytosis, Tachycardia
Severe R PNA, elevated procal, covid and flu negative
Recent influenza exposure
Cardiomyopathy, EF 10%
Elevated troponin
Concern for acute CHF
Anemia
Hyponatremia
Obesity
ECHO 02/15/24: EF 10-15%, severe diffuse global hypokinesis, stage 3 diastolic dysfunction, mild MR, mild TR, PAP 25-30mmHg
Plan:
-patient presented with SOB, recently treated for presumed bronchitis, with subsequent recurrence of symptoms
-now with fever, leukocytosis, tachycardia. procal elevated at 0.44. chest CT with B/L PNA, severe on R. on abx per primary service. covid and flu negative however with recent flu exposure
-trop up to 3.3, trend to peak
-echo with EF 10-15% and global hypokinesis. d/w patient and dad at bedside
-currently ST with HRs 130-140s on tele
-for transfer to IMU/higher level of care
-add asa
-add losartan 25mg BID as BP stable. hold for SBP<110
-check CVE in AM
-not presently requiring supp O2. IVF stopped. check proBNP. may consider for dose of IV lasix pending BP
-plan for L/RHC in AM. procedure discussed with patient and dad at bedside
-may require transfer to tertiary care center
-d/w nursing. d/w hospitalist
Data Reviewed
-
EKG: Tracing Personally Visualized and interpreted
Radiology: Report Reviewed by me
Medical Tests (Nuc Med, Echo etc): Report Reviewed by me
Labs: Labs Reviewed by me
Old Records: Reviewed
[2024-02-24] MEDS: NSS IV (17:02)
--- NOTE | 2024-02-24 17:14 | W.PN.HOSP.TC ---
Today's Communication/Plan
-
transfer to IMU
consult pulm/cards
for right and left heart cath tomorrow
stop IVF
Assessment / Plan
Assessment / Plan
pt is a 23 year old male
Sepsis secondary to large right sided pna--still with temps--consult pulm--IV zosyn changed to vanco/cefepime/doxy--follow cultures--CT scan chest without PE--COVID negative, flu neg--rest of cultures pending--think secondary bacterial pna after flu
infection a few weeks back
troponin elevation--possibly acute non myocardial injury vs type 2 [place] with rising troponin--echo with EF 10%--likely viral cardiomyopathy--for right and left heart cath tomorrow--transfer to IMU--stop IVF--not treating tachycardia, it is compensatory
Morbid Obesity - Affects all aspects of care and specifically increase risks of viral pneumonias, respiratory compromise, etc-- Encourage healthy diet and increased activity with goal of weight loss.
Vaping- affects overall respiratory health and increases risks of severe disease in setting of pulmonary infections, etc.- Encourage attempts at cessation.
DVT Prophylaxis: Lovenox
Code Status: Full
Anticipated Discharge: > 48 hours
Subjective/Interval History
-
Date of Service: February 24, 2024
pt still coughing--returned from echo
Objective Data
-
Labs:
Laboratory Results
02/24/24 02/24/24
06:27 14:00
WBC 17.7 H
Hgb 12.5 L
Hct 37.0 L
Plt Count 258
Sodium 131 L 131 L
Potassium 4.4 3.9
Chloride 106 105
Carbon Dioxide 17 L 19 L
BUN 8 L 8 L
Creatinine 0.8 0.8
Glucose 109 H 124 H
Calcium 8.3 L 8.1 L
Total Bilirubin 1.9 H 1.9 H
AST 49 62 H
ALT 39 40
Alkaline Phosphatase 85 84
Vital Signs:
max temp for 24 hours
02/23/24
22:11
Temp 102.7 F H
Vital Signs
Temp Pulse Resp BP Pulse Ox
102.2 F H 132 18 136/78 95
02/24/24 15:59 02/24/24 15:15 02/24/24 15:15 02/24/24 15:15 02/24/24 15:15
I&O
02/23/24 02/24/24 02/25/24
06:59 06:59 06:59
Intake Total 2019 3240 / 3240
Balance 2019 3240 / 3240
Review of Systems
-
All other systems: Reviewed and negative
Respiratory: Reports Cough and Trouble Breathing
Physical Exam
-
General: Well Developed, Well Nourished and Respiratory Distress (cough)
HEENT: Normocephalic and Atraumatic; Negative Oxygen
Respiratory: Rhonchi (right lung field)
Cardiac: Regular Rhythm, S1/S2 and Tachycardic
GI: Soft, Nontender, Nondistended and Normal Bowel Sounds
Musculoskeletal: No Clubbing, No Cyanosis and No Edema
Neuro: Awake
Psych: Calm
--- NOTE | 2024-02-24 17:26 | W.PN.HOSP.TC ---
Today's Communication/Plan
-
consult ID
cont [email or web address]
add IS
Assessment / Plan
Assessment / Plan
pt is a 23 year old male
Sepsis secondary to large right sided pna--still with temps--consult ID--cont IV zosyn for now, will defer to them abx choices--follow cultures--COVID negative, flu neg--rest of cultures pending--think secondary bacterial pna after flu infection a
few weeks back
troponin elevation--possibly acute non myocardial injury vs type 2 [place] with rising troponin--up to 1.9--likely tachycardia not helping
hyponatremia--from lung process--trend
Morbid Obesity - Affects all aspects of care and specifically increase risks of viral pneumonias, respiratory compromise, etc-- Encourage healthy diet and increased activity with goal of weight loss.
Vaping- affects overall respiratory health and increases risks of severe disease in setting of pulmonary infections, etc.- Encourage attempts at cessation.
DVT Prophylaxis: Lovenox
Code Status: Full
Anticipated Discharge: > 48 hours
Subjective/Interval History
-
Date of Service: February 23, 2024
LATE ENTRY--I did see the patient 02/23/24
Objective Data
-
Labs:
Laboratory Results
02/24/24 02/24/24
06:27 14:00
WBC 17.7 H
Hgb 12.5 L
Hct 37.0 L
Plt Count 258
Sodium 131 L 131 L
Potassium 4.4 3.9
Chloride 106 105
Carbon Dioxide 17 L 19 L
BUN 8 L 8 L
Creatinine 0.8 0.8
Glucose 109 H 124 H
Calcium 8.3 L 8.1 L
Total Bilirubin 1.9 H 1.9 H
AST 49 62 H
ALT 39 40
Alkaline Phosphatase 85 84
Vital Signs:
Vital Signs
Temp Pulse Resp BP Pulse Ox
102.2 F H 132 18 136/78 95
02/24/24 15:59 02/24/24 15:15 02/24/24 15:15 02/24/24 15:15 02/24/24 15:15
I&O
02/23/24 02/24/24 02/25/24
06:59 06:59 06:59
Intake Total 2019 3240 / 3240
Balance 2019 3240 / 3240
Review of Systems
-
Respiratory: Reports Cough and Trouble Breathing
Physical Exam
-
General: Well Developed, Well Nourished, No Apparent Distress and Obese
HEENT: Normocephalic and Atraumatic; Negative Oxygen
Respiratory: Rhonchi
Cardiac: Regular Rhythm, S1/S2 and Tachycardic; Negative Murmur
GI: Soft, Nontender, Nondistended and Normal Bowel Sounds
Musculoskeletal: No Clubbing, No Cyanosis and No Edema
Skin: Warm
[2024-02-24 17:38] LABS: NT-proBNP 11200 pg/ml
[2024-02-24] MEDS: LOW STRENGTH ASPIRIN 324 MG PO (17:59)
[2024-02-24] MEDS: LASIX 40 MG IV (17:59)
[2024-02-24] MEDS: LOVENOX 40 MG SC (17:59)
--- NOTE | 2024-02-24 18:00 | PTCARENOTE ---
pt transferred to IMU for higher level of care. report given to Amanda
--- NOTE | 2024-02-24 18:43 | PTCARENOTE ---
Rec'd pt upgraded from [facility]. Educated on condition, treatment plan, monitoring, fall risk. pt expresses understanding. ST on tele. 94% on RA.
[2024-02-24] MEDS: MUCINEX 1200 MG PO (19:48)
[2024-02-24] MEDS: COZAAR 25 MG PO (19:49)
[2024-02-24] MEDS: TESSALON PERLES 200 MG PO (21:25)
[2024-02-24] MEDS: MAALOX 30 ML PO (22:31)
[2024-02-24] MEDS: HYCODAN SYRUP 5 ML PO (22:32)
[2024-02-24] MEDS: XANAX 0.25 MG PO (22:32)
--- NOTE | 2024-02-24 23:16 | PTCARENOTE ---
Received pt at the change of shift with his family and girlfriend in the room. He was diaphoretic and he was coughing frequently. Gave pt his meds and encouraged him not to drink a lot of water as he had just had Lasix and explained the need to
get rid of fluid. When he talks he will cough and get tachypneic. Sputum sent for respiratory culture. Heart rhythm is sinus tachycardia 110-138. Resp rate is 20-32. He complained of some reflux heart burn and UPPERS EDGE BURNISHER aware and Maalox given. Also
given Xanax and cough syrup. Temp was 99.0 at shift change and was just 100.8, so gave pt tylenol. Pt's O2 sat dropped to 89% on room air and added O2 at 2 liters. Troponin drawn at 19:52 was 3.950, still rising, UPPERS EDGE BURNISHER notified. Also told about BP.
BP was being measured by his Left for arm, as it was reported that the cuff did not fit his upper arms. Long BP cuff attempted and BP measured manually and was 128/90 on the R arm. Was unable to hear a BP accurately in the L arm. So BP cuff now
on R upper arm. Bt's Bp varies with his persistent coughing. Will measure manual BP when monitoring.
[2024-02-25] VITALS (7 sets, daily range): BP systolic 120–164; BP diastolic 83–140
[2024-02-25] MEDS: VANCOCIN 200 IV (01:15)
[2024-02-25 02:57] LABS: % Basophils 0.2 % (0-2); % Immature Granulocytes 0.7 % (0-0.5); % Lymphocytes 6.8 % (20.5-51.1); % Monocytes 7.2 % (1.7-9.3); % Neutrophils 85.1 % (42.2-75.2); Absolute Basophils 0.1 10^3/uL (0-0.2); Absolute Immature Granulocytes 0.1 10^3/uL (0-0.05); Absolute Lymphocytes 1.4 10^3/uL (1.2-3.4); Absolute Monocytes 1.5 10^3/uL (0.1-0.6); Absolute Neutrophils 17.9 10^3/uL (1.4-6.5); Hematocrit 38.9 % (39.0-52.0); Hemoglobin 13.3 g/dL (13.0-18.0); Mean Corp Hgb Conc. 34.2 g/dL (33.0-37.0); Mean Corpuscular Hgb 29.8 pg (27.0-31.0); Mean Corpuscular Volume 87.2 fL (80.0-94.0); Mean Platelet Volume 12.6 fL (7.4-10.4); Nucleated Red Blood Cells % 0 % (-); Platelet Count 300 10^3/uL (130-400); Red Blood Cell Count 4.46 10^6/uL (4.70-6.10); Red Cell Dist. Width 13.1 % (11.5-14.5); White Blood Cell Count 21.1 10^3/uL (4.8-10.8)
[2024-02-25 03:10] LABS: Lactic Acid 1.1 mmol/L (0.7-2.0)
[2024-02-25 03:14] LABS: ALT (SGPT) 47 U/L (0-50); AST (SGOT) 76 U/L (17-59); Albumin 2.9 g/dl (3.5-5.0); Alkaline Phosphatase 84 U/L (38-126); Blood Urea Nitrogen 10 mg/dl (9-20); Calcium 8.7 mg/dl (8.4-10.2); Carbon Dioxide 25 mmol/L (22-30); Chloride 102 mmol/L (98-107); Estimated Creatinine Clearance > 125 ml/min; Glucose 137 mg/dl (70-99); HDL Cholesterol 36 mg/dl; LDL Cholesterol, Calculated 92 mg/dl; Magnesium 1.8 mg/dl (1.6-2.3); Potassium 4.6 mmol/L (3.5-5.1); Sodium 136 mmol/L (135-145); Total Bilirubin 1.5 mg/dl (0.2-1.3); Total Cholesterol 143 mg/dl (50-199); Total Protein 5.6 g/dl (6.3-8.2); Triglyceride 76 mg/dl (10-149); Very Low Density Lipoprotein 15 mg/dl (0-30); eGFR > 60.00
[2024-02-25 03:15] LABS: Vancomycin Random 25.1 ug/ml
[2024-02-25] MEDS: MAXIPIME 2000 MG IV (05:50)
[2024-02-25] MEDS: STERILE WATER FOR INJECTION 10 ML IV (05:50)
--- NOTE | 2024-02-25 08:02 | PHA.VAN.FU ---
Vancomycin Assessment / Plan
- Assessment
Renal Function: SCR Increasing (0.8 --> 1.1)
WBC's are: Trending Up
In the past 24 hrs, patient has been: Febrile
Concomitant Antimicrobials: cefepime, doxycycline
- Assessment - Therapeutic Drug Monitoring
Random Level: 25.1 - drawn ~30 mins after dose - level is a peak
- Dosing Plan
Dosing Comments: will hold off on dosing for now and repeat level
- Monitoring Plan
Random Level: 02/24 1000
Level drawn early this morning and is essentially a peak level
Repeat random level this AM to give time for clearance from peak and re-evaluate
- Follow Up
Pharmacy will continue to follow.
Vancomycin Follow UP
- -
Patient Age: 23
Patient Sex: Male
Vancomycin Day #: 2
Indication: Pulmonary/Respiratory
Requesting Provider: Dr. Leroy
Pertinent Antimicrobial Allergies:
NKDA
Height / Weight:
Height 6 ft 1 in
Actual Weight 152.044 kg
Pertinent Past Medical History: BMI ~44
- Vital Signs / Lab Results
Temp Pulse Resp BP Pulse Ox
98.7 F 134 22 122/98 94
02/25/24 04:16 02/25/24 06:15 02/25/24 06:15 02/25/24 06:10 02/25/24 06:15
Lab Results - Hematology
02/22/24 02/23/24 02/23/24
18:01 06:51 19:01
WBC 17.6 H 15.6 H 16.5 H
02/24/24 02/25/24
06:27 02:41
WBC 17.7 H 21.1 H
Lab Results - Chemistry
02/22/24 02/23/24 02/23/24
18:01 06:51 19:00
BUN 14 9 10
Creatinine 1.1 1.0 0.9
Estimated Creat Clear > 125 > 125 > 125
Albumin 3.6 3.0 L 2.9 L
02/24/24 02/24/24 02/25/24
06:27 14:00 02:41
BUN 8 L 8 L 10
Creatinine 0.8 0.8 1.1
Estimated Creat Clear > 125 > 125 > 125
Albumin 2.9 L 3.0 L 2.9 L
02/22/24 02/23/24 02/24/24
20:51 19:01 14:00
Lactic Acid 1.2 1.2 1.5
02/25/24
02:41
Lactic Acid 1.1
Microbiology Results
02/22/24 20:51 Blood Culture - Preliminary
Blood/Venous No Growth in 48 hours- Final report to follow
02/22/24 20:51 Blood Culture - Preliminary
Blood/Venous No Growth in 48 hours- Final report to follow
02/24/24 13:33 Legionella Urinary Antigen - Final
Urine Negative for Legionella pneumophila Serogroup 1 antigen.
A negative result does not rule out the possiblity of
Legionella infection due to other serogroups or species of
Legionella. Clinical correlation is recommended.
02/24/24 13:33 Streptococcus pneumoniae Antigen (M - Final
Urine Negative for Streptococcus pneumoniae antigen.
A negative result does not exclude infection with
Streptococcus pneumoniae. Clinical correlation is
recommended.
Therapeutic Drug Monitoring
Random Vancomycin 25.1 ug/ml 02/25/24 02:41
[2024-02-25] MEDS: COZAAR 25 MG PO (08:14)
[2024-02-25] MEDS: TESSALON PERLES 200 MG PO (08:14)
[2024-02-25] MEDS: VIBRAMYCIN 100 MG PO (08:14)
[2024-02-25] MEDS: LASIX 40 MG IV (08:15)
[2024-02-25] MEDS: LOW STRENGTH ASPIRIN 81 MG PO (08:16)
[2024-02-25] MEDS: MUCINEX 1200 MG PO (08:16)
--- NOTE | 2024-02-25 08:21 | PTCARENOTE ---
Per nightshift RN pt able to sleep last night after cough meds. Requiring O2 4L. Current sat 96% on 4L. remains tachypnic and tachycardic.
--- NOTE | 2024-02-25 08:31 | PTCARENOTE ---
RN evaluated pt's abilility to lay flat for cardiac cath. pt able to tolerate laying flat in bed. O2 sat 97% on 4L. Pt reported he felt comfortable
[2024-02-25 08:49] LABS: Glycohemoglobin (HgbA1c) 5.9 % (4.0-5.6)
--- NOTE | 2024-02-25 08:53 | W.PN.CARDCBS ---
Addendum entered and electronically signed by Shona Recinos MD 02/25/24 10:58:
I saw and examined the patient.
The Undergraduate Internship's note was reviewed and I agree with the note.
Comment: Patient seen and examined bedside. In addition to prior history yesterday, patient did add that he drinks about 15-20 shots of vodka every week and has been doing this for the last 2 years. He also vapes a pack a cigarette and has been
doing this for the last 2 years. His oxygen requirement overnight did increase and now he is on 4 L of oxygen satting 91 to 92% with persistent orthopnea and significant coughing with laying down. In this setting we discussed that patient would
not be safe for diagnostic left and right heart catheterization or any type of sedation.
Given patient continues to remain significantly tachycardic in the 120s to 130s, with my review of the echocardiogram showing a dilated left ventricle with severely reduced LVEF of 10 to 15%, global hypokinesis, I had an extensive discussion with
Dr. Mattie Issa at [facility] expressing my concern given patient is so young with possibly worsening pneumonia in the setting of a severe cardiomyopathy of unclear etiology.
We agreed that the safest would be to get him transferred to a higher level of care in case he were to get worse before he gets better. We will help arrange for transfer to medicine with pulmonary medicine and cardiology following at [facility]
[place]. We will continue medical therapy for new cardiomyopathy (possible viral myocarditis versus alcohol induced cardiomyopathy) with losartan 25 mg twice daily, continued IV diuresis. We will hold off on any beta-blockers given he is
likely tachycardic from underlying infection and this is his compensatory mechanism.
On exam he continues to not suggest signs of low flow with warm extremities, ANO x 3, elevated JVP, morbid obesity, bibasilar Rales with diffuse rhonchi, worse on right than left. Tachycardic, normal S1 and S2. Lab work with normal lactate and
normal renal function.
I also discussed extensively with both parents over the phone and both are in agreement as is the patient in regards to the transfer.
We also communicated with the primary team.
Shona Recinos MD, [facility], [facility]
Time spent: 67 minutes
Original Note:
Today's Communication / Plan
-
transfer patient
continue asa, losartan, IV lasix
Impression / Plan
-
Primary Grand Scribe: none
Assessment:
Presentation with SOB
Fever, Leukocytosis, Tachycardia
Severe R PNA, elevated procal, covid and flu negative
Recent influenza exposure
Cardiomyopathy, EF 10%
Elevated troponin, suspected nonMI trop elevation
Acute HFrEF
Anemia
Hyponatremia
Obesity
Tobacco use - vapes
binge drinker
ECHO 02/15/24: EF 10-15%, severe diffuse global hypokinesis, stage 3 diastolic dysfunction, mild MR, mild TR, PAP 25-30mmHg
Plan:
-Patient remains very ill
-continues with evidence of sepsis. Chest CT with severe right-sided pneumonia. covid and flu negative however with recent flu exposure
-remains with significant cough, productive of orange-brown sputum
-Echocardiogram with EF 10 to 15%, biventricular dilation, and global hypokinesis. Concern for viral etiology versus alcohol
-Troponin peaked at 3.9 and trending down. Patient without chest pain. Continue aspirin
-proBNP 58809. continue IV lasix 40mg BID. diuresing well, however with worsening oxygenation overnight, now on 4L NC.
-unable to complete L/R cath today due to this
-continue losartan 25mg BID
-currently ST with HRs 130-140s on tele
-MD to reach out to [facility], Dr. Issa, regarding patient transfer, however given PNA will likely need medicine service
-d/w nursing. d/w hospitalist
Progress Note - Grand Scribe
Subjective
Date of Service: February 25, 2024
reports breathing is better today. remains with cough
Objective
Labs:
02/25/24 02:41
02/25/24 02:41
Labs
Hgb 13.3 g/dL (13.0-18.0) 02/25/24 02:41
Hct 38.9 % (39.0-52.0) L 02/25/24 02:41
Plt Count 300 10^3/uL (130-400) 02/25/24 02:41
Sodium 136 mmol/L (135-145) 02/25/24 02:41
Potassium 4.6 mmol/L (3.5-5.1) 02/25/24 02:41
BUN 10 mg/dl (9-20) 02/25/24 02:41
Creatinine 1.1 mg/dL (0.7-1.3) 02/25/24 02:41
Glucose 137 mg/dl (70-99) H 02/25/24 02:41
Troponins
02/23/24 02/24/24 02/24/24
19:00 01:59 06:27
Troponin I 0.170 H* 0.896 H* D 1.920 H* D
02/24/24 02/24/24 02/25/24
12:34 19:52 02:41
Troponin I 3.350 H* D 3.950 H* 3.440 H*
Vital Signs and I&O:
Vital Signs
Temp Pulse Resp BP Pulse Ox
98.8 F 133 22 135/97 94
02/25/24 07:00 02/25/24 08:15 02/25/24 06:15 02/25/24 08:15 02/25/24 06:15
Vital Signs
Temp Pulse Resp BP Pulse Ox
98.8 F 133 22 135/97 94
02/25/24 07:00 02/25/24 08:15 02/25/24 06:15 02/25/24 08:15 02/25/24 06:15
Intake & Output
02/23/24 02/24/24 02/25/24 02/26/24
07:59 07:59 07:59 07:59
Intake Total 2019 3240 / 3240 600 / 600
Output Total 3400 / 3400
Balance 2019 3240 / 3240 -2800 / -2800
Physical Exam
Physical Exam
GEN: No distress, awake, alert, oriented x3. obese. on supp O2
HEENT: supple, anicteric, mmm, eomi
LUNGS: no audible wheezes
CV: Reg and tachy on tele
EXT: No cyanosis, clubbing, edema
NEURO: Gross non-focal
SKIN: Warm, pink, dry. No rash
--- NOTE | 2024-02-25 09:02 | W.PN.HOSP.TC ---
Addendum entered and electronically signed by Jennifer Tomlinson MD 02/25/24 09:59:
pt accepted at [facility]--has a bed--accepting MD is Dr. Mick Caban
pt medically stable for d/c
Original Note:
Today's Communication/Plan
-
cards working on transfer to [place]
cont current abx for now
cont diuresis
Assessment / Plan
Assessment / Plan
pt is a 23 year old male
Sepsis secondary to large right sided pna--still with temps--apprec pulm/ID--cont vanco/cefepime/doxy--follow cultures--CT scan chest without PE--COVID negative, flu neg--rest of cultures neg or pending--think secondary bacterial pna after flu
infection a few weeks back--still with fevers, WBC increasing
troponin elevation--possibly acute non myocardial injury vs type 2 MT with rising troponin--echo with EF 10-15%--likely viral cardiomyopathy--will need right and left heart cath--transfered to IMU--stop IVF--not treating tachycardia, it is
compensatory
acute hypoxemic resp failure--due to pna with possibly some iatrogenic fluid overload from IVF--cont O2 and wean as able
Morbid Obesity - Affects all aspects of care and specifically increase risks of viral pneumonias, respiratory compromise, etc-- Encourage healthy diet and increased activity with goal of weight loss--suggested he see Dr. Cowart as outpt--also may
need sleep study to r/o sleep apnea
Vaping- affects overall respiratory health and increases risks of severe disease in setting of pulmonary infections, etc--told pt needs to quit
ETOH abuse--drinks ~20 shots per week (admitting H&P documented occasional ETOH intake)--more than that--pt states that he stopped drinking 3 weeks ago and had no DTs (no tremors or hallucinations)--told pt needs to quit
DVT Prophylaxis: Lovenox
Code Status: Full
spoke with Dr. Recinos cards--planning to transfer to [place]--no accepting MD yet
Anticipated Discharge: Within 24 hours
Subjective/Interval History
-
Date of Service: February 25, 2024
pt slept better last night with Hycodan and xanax
moved to [facility] after echo revealed EF 15%
Objective Data
-
Labs:
Laboratory Results
02/25/24
02:41
WBC 21.1 H
Hgb 13.3
Hct 38.9 L
Plt Count 300
Sodium 136
Potassium 4.6
Chloride 102
Carbon Dioxide 25
BUN 10
Creatinine 1.1
Glucose 137 H
Calcium 8.7
Total Bilirubin 1.5 H
AST 76 H
ALT 47
Alkaline Phosphatase 84
Vital Signs:
max temp for 24 hours
02/24/24
15:59
Temp 102.2 F H
Vital Signs
Temp Pulse Resp BP Pulse Ox
98.8 F 133 22 135/97 94
02/25/24 07:00 02/25/24 08:15 02/25/24 06:15 02/25/24 08:15 02/25/24 06:15
I&O
02/24/24 02/25/24 02/26/24
06:59 06:59 06:59
Intake Total 3240 / 3240 600 / 600
Output Total 3400 / 3400
Balance 3240 / 3240 -2800 / -2800
Review of Systems
-
All other systems: Reviewed and negative
Respiratory: Reports Cough
Physical Exam
-
General: Well Developed, Well Nourished and Morbidly Obese
HEENT: Normocephalic, Atraumatic and Oxygen
Respiratory: Rhonchi (right lung field)
Cardiac: Regular Rhythm, S1/S2 and Tachycardic
GI: Soft, Nontender, Nondistended and Normal Bowel Sounds
Musculoskeletal: No Clubbing, No Cyanosis and No Edema
Neuro: Awake and Alert
Psych: Calm
--- NOTE | 2024-02-25 09:14 | W.PN.PUL3 ---
Today's Communication / Plan
-
ECHO noted, cards eval reviewed, acute (presumed) NICM EF 10%
Will need R/LHC
Improving on lasix
Transfer process initiated to tertiary center, patient agreeable
Discharge planning per team
Assessment
-
Patient is a 23 year old M with no significant PMH who presents to ED complaining of fevers, chills, cough and malaise. Patient states that his symptoms started about 2 weeks ago. Patient states that his girlfriend tested positive for influenza
2 weeks ago as well. Since admission, he has developed worsening acidosis, persistent fevers, diaphoresis. CT showing dense extensive R sided PNA. We are consulted for severe PNA.
Acute R sided PNA, progressive/extensive
Acute hypoxic resp failure
SOB
Cough
Fevers
Leukocytosis
Metabolic acidosis
Elevated trops
Acute nonischemic cardiomyopathy, EF 10% likely viral myocarditis
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
Morbid obesity BMI 44
Vaping past 2 years
Plan
No oxygen was needed on admission, desaturating last few hours, now placed on 1L
Prior history of lung disease is not noted--
He does use a vape daily (past 2 years). Never smoked cigarettes.
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
No prior history of lung disease, denies family history.
CXR obtained indicating severe R sided PNA, not improving
CT reviewed as well with severe unilateral disease/with pleural sparring
Sputum culture pending
Will add MRSA screen which would be most likely 2 weeks post influenza illness
Flu neg, legionella/strep pending
COVID neg
Cardiomeg noted on CT, elevated trops
STAT ECHO order placed--EF 10%, likely viral myocarditis
Cards eval noted, planning for R/LHC
Worsening acidosis, may spell for worsening/impending severe sepsis/shock
Currently on empiric IV abx
ID consult obtained
We discussed potential need for bronchoscopy if not improving
Weight loss measures recommended
Obesity contributing to respiratory symptoms
Transfer process initiated to Tertiary center, he was agreeable
Discharge planning per team
Diagnostic Data
CXR 02/23/24- Grossly stable findings suggesting right-sided pneumonia.
02/22/24- Findings suggesting moderate right upper and lower lobe pneumonia. Mild cardiomegaly. This may be projectional. The patient was imaged in a slightly lordotic position.
CT Chest 02/23/24- There is no pulmonary embolism. There is no aortic dissection. There is no pneumothorax. There are no abnormal pleural or parenchymal masses. There is no pleural effusion.
There is severe diffuse airspace disease in the right upper and lower lobes greatest in the lower lobe and moderate left lower lobe concerning for pneumonia considering the asymmetry.
The mediastinum is normal. There is moderate mediastinal lymphadenopathy. The largest lymph node is tracheal and measures approximately 2.2 x 1.1 cm. There is no axillary lymphadenopathy. No significant osseous abnormalities are demonstrated. The
heart is mildly enlarged. There is a small hiatal hernia.
Subjective Data
-
Date of Service:
Date of Service: February 25, 2024
Chief Complaint: Pulmonary Follow Up
Subjective:
doing better this AM, feels his SOB has been improving
less fever/chills, less orthopnea
Objective Data
Data Reviewed
Vital Signs / I&O / Oxygen:
Vital Signs
Temp Pulse Resp BP Pulse Ox
98.8 F 133 22 135/97 94
02/25/24 07:00 02/25/24 08:15 02/25/24 06:15 02/25/24 08:15 02/25/24 06:15
Intake and Output
02/24/24 02/25/24 02/26/24
06:59 06:59 06:59
Intake Total 3240 / 3240 600 / 600
Output Total 3400 / 3400
Balance 3240 / 3240 -2800 / -2800
SaO2 94
Nasal Cannula flow liters per 4
minute
Physical Exam
General: Comfortable and Other (NAD)
HEENT: Normocephalic, Anicteric and Moist Mucous Membranes
Cardiovascular: S1-S2 and Regular Rhythm
Respiratory: Crackles and Non-Labored Respirations
GI: Soft, Non Distended and Non Tender
Neurology: Awake, Alert, Oriented, AO x 3 and No Motor Deficits
Skin: Warm, Dry and Good Color
Labs/Micro/Reports
Lab Data
02/25/24 02:41
02/25/24 02:41
Microbiology
02/24/24 21:36 Sputum Gram Stain - Preliminary
02/22/24 20:51 Blood/Venous Blood Culture - Preliminary
No Growth in 48 hours- Final report to follow
02/22/24 20:51 Blood/Venous Blood Culture - Preliminary
No Growth in 48 hours- Final report to follow
02/24/24 13:33 Urine Legionella Urinary Antigen - Final
Negative for Legionella pneumophila Serogroup 1 antigen.
A negative result does not rule out the possiblity of
Legionella infection due to other serogroups or species of
Legionella. Clinical correlation is recommended.
02/24/24 13:33 Urine Streptococcus pneumoniae Antigen (M - Final
Negative for Streptococcus pneumoniae antigen.
A negative result does not exclude infection with
Streptococcus pneumoniae. Clinical correlation is
recommended.
02/22/24 20:51 Nasal Swab Influenza Types A & B (FABIAN) - Final
Negative for Influenza A & B, NAAT
Negative results must be combined with clinical observations
and patient history.
Nucleic Acid Amplification test (NAAT)performed on the
[employer] platform.
--- NOTE | 2024-02-25 10:06 | W.PN.ID1 ---
Date of Service
Date of Service: February 25, 2024
Today's Communication
- sputum culture most sensitive test for staph pneumonia - mrsa screen on nares would not change my management by itself in this scenario
- continue vancomycin, cefepime, doxycycline
Assessment / Plan
Bacterial Pneumonia
Class III Obesity
Vaping
- with recent probable diagnosis of influenza with a biphasic course (initially getting better, then worsening) I have particular concern for MRSA pneumonia
- sputum culture most sensitive test for staph pneumonia - mrsa screen on nares would not change my management by itself in this scenario
- acapella - RT to assist with its use
- urine ag for s pneumo and legionella - negative
- blood cultures x2 in progress - no growth to date
- doses adjusted for BMI/renal function; QTc is long
- continue vancomycin, cefepime, doxycycline
- follow clinically
CHF - EF 10-15%
NSTEMI
- for transfer to [facility] for right and left heart cath
- EtOH abuse could also be contributing
Prediabetic
- at risk of progression to DM2
- follow up with PCP
Chief Complaint
-: Pneumonia
Subjective / Review of Systems
fever curve now improving
BP stable
now on 4L NC
wbc 21, hgb improved
ptl normal
L shift persists
cr 1.1 today
sputum: contaminated but did have rare GPCs
Vital Signs / Physical Exam
Vital Signs
Vital Signs
Temp Pulse Resp BP Pulse Ox
98.8 F 133 22 135/97 94
02/25/24 07:00 02/25/24 08:15 02/25/24 06:15 02/25/24 08:15 02/25/24 06:15
Physical Exam
Constitutional: No Acute Distress and Obese
Cardiovascular: Regular Rate and S1/S2; Negative Murmur or Rub
Pulmonary: Clear and Symmetric; Negative Wheezes or Rales
Gastrointestinal: Soft, Non Tender, Non Distended and Normal Bowel Sounds
Skin: Warm and Dry; Negative Rash or Jaundice
Objective Data
Lab Data
Lab Results
02/25/24 02:41
02/25/24 02:41
Estimated Creat Clear > 125 ml/min 02/25/24 02:41
Lactic Acid 1.1 mmol/L (0.7-2.0) 02/25/24 02:41
Total Bilirubin 1.5 mg/dl (0.2-1.3) H 02/25/24 02:41
AST 76 U/L (17-59) H 02/25/24 02:41
ALT 47 U/L (0-50) 02/25/24 02:41
Alkaline Phosphatase 84 U/L (38-126) 02/25/24 02:41
Most recent labs reviewed.
Micro Results:
02/24/24 21:36 Respiratory Culture - Pending
Sputum Gram Stain - Preliminary
02/22/24 20:51 Blood Culture - Preliminary
Blood/Venous No Growth in 48 hours- Final report to follow
02/22/24 20:51 Blood Culture - Preliminary
Blood/Venous No Growth in 48 hours- Final report to follow
02/24/24 13:33 Legionella Urinary Antigen - Final
Urine Negative for Legionella pneumophila Serogroup 1 antigen.
A negative result does not rule out the possiblity of
Legionella infection due to other serogroups or species of
Legionella. Clinical correlation is recommended.
02/24/24 13:33 Streptococcus pneumoniae Antigen (M - Final
Urine Negative for Streptococcus pneumoniae antigen.
A negative result does not exclude infection with
Streptococcus pneumoniae. Clinical correlation is
recommended.
02/24/24 13:33 MRSA Screen - Pending
Nose
02/22/24 20:51 Influenza Types A & B (FABIAN) - Final
Nasal Swab Negative for Influenza A & B, NAAT
Negative results must be combined with clinical observations
and patient history.
Nucleic Acid Amplification test (NAAT)performed on the
[employer] platform.
[2024-02-25 10:13] LABS: Vancomycin Random 6.4 ug/ml
--- NOTE | 2024-02-25 10:26 | PTCARENOTE ---
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 Pt AAO, pleasant, agreeable to care. Pt on 5L 02, satting 96%, crackles throughout, tachypneic. Pt OOB without problems. Pt had loose brown BM this AM on commode. Pt provided assistance to preform oral care. Pt
maintained NPO. except AM meds with water. Pt took pills without complications with water this AM. Pts hear rate remains tachy, 120-130's. Pt denies chest pain. Please nursing shift report for full head to toe. Call myers in reach.
--- NOTE | 2024-02-25 10:26 | PTCARENOTE ---
Pt for transfer to [facility]. Report given to Dia in transfer center and Lissette at [facility].
--- NOTE | 2024-02-25 15:34 | W.DCSUMMARY ---
Discharge Summary
Discharge Data
Date of Admission: 02/22/24
Date of Discharge: 02/25/24
-
Pending Results: No
Hospital Course
Primary care physician : None listed
Principal Discharge diagnosis : Sepsis secondary to large right-sided pneumonia, troponin elevation with cardiomyopathy
Chronic Discharge diagnosis : Morbid obesity, vaping, alcohol abuse
Hospital Course : Patient was a 23-year-old male who presented complaining of fevers, chills, cough, and malaise. He stated that his symptoms started 2 weeks prior to admission. At that time his girlfriend tested positive for influenza. He noted
that his symptoms were worse at night and had difficulty sleeping due to the cough and shortness of breath when attempting to lie flat. He was seen at an urgent care and diagnosed with bronchitis. He was prescribed azithromycin and prednisone and
completed both. He stated that he felt somewhat improved but then the symptoms returned. He uses a daily vaping device and does drink alcohol more significantly than was indicated on the admission history and physical. Patient was admitted.
Problem #1: Sepsis secondary to large right-sided pneumonia. Patient was admitted and started on IV Vanco and Zosyn. He was seen in consultation by ID and was changed to vancomycin cefepime and doxycycline. Cultures were drawn and were negative.
Patient had continued fevers and shortness of breath throughout his hospital course and a CAT scan of his chest was done. He did not have any evidence of pulmonary embolism but did show a large severe right-sided pneumonia. COVID was checked and
was negative, influenza was checked and was negative. Thoughts were that this was a secondary bacterial pneumonia after the flu infection that he had a few weeks back. Patient was seen in consultation by pulmonary.
Problem #2: Troponin elevation with cardiomyopathy. As part of the workup from a pulmonary standpoint, echocardiogram was checked. Patient was found to have a significant cardiomyopathy with an EF of 10 to 15%. Once that was determined,
cardiology was consulted and IV fluids were stopped. Patient was given IV diuretics and plans were for right and left heart catheterization on February 25, 2024. The qc chemist recommended transferring the patient to [facility] for further care. He did develop acute hypoxemic respiratory insufficiency and did require 4 L of oxygen. She felt that he was not stable enough to have anything done here.
Problem #3: All other medical issues. These include Morbid obesity, vaping, alcohol abuse. These medical issues were stable during his hospitalization. Medications were continued as able. He was instructed to stop vaping. In regards to the
alcohol abuse, patient stated that he drinks approximately 20 shots per week. He states that he stopped drinking 3 weeks ago but had no history of DTs, tremors, or hallucinations. He has been instructed that he needs to quit alcohol.
Patient has been accepted to the [facility] under the care of the accepting physician Dr. Mick Caban. Patient has been stabilized to the best of our ability and will be transferred to [facility] at this time. If
there are any questions regarding this dictation or his hospital stay, please do not hesitate to call. Our office number is [phone].
Time for discharge 40 minutes.
Important imaging findings :
CT CHEST IMPRESSION:
No evidence of pulmonary embolus.
Findings suggesting bilateral pneumonia. Severe on the right. See above.
Mild cardiomegaly.
Moderate mediastinal lymphadenopathy likely reactive.
ECHOCARDIOGRAM CONCLUSIONS:
Left ventricle is severely dilated. Severely reduced left ventricular systolic
function. Left ventricular ejection fraction is 10-15% by Jefferson's method of
discs. Severe diffuse global hypokinesis. Mildly increased left ventricular
wall thickness. Stage III diastolic dysfunction suggestive of restrictive
filling pattern and increased filling pressures.
Normal right ventricular size. Reduced right ventricular systolic function.
Mild mitral regurgitation.
Mild tricuspid regurgitation. Estimated pulmonary artery pressure of 25-30 mmHg
assuming a right atrial pressure of 8 mmHg.
No prior study for comparison
Discharge Plan
-
Patient Disposition: Acute Care Hospital
Discharge Orders:
Discharge Patient (As Directed); Ordered 02/25/24
Ordered By: Jennifer Tomlinson
Discharge Date and Time
Discharge Date/Time: 02/25/24 12:05
Print Language: YI
--- NOTE | 2024-02-25 17:02 | CM ---
Patient with Dx sepsis, PNA, acute hypoxemic resp failure, echo with EF 10-15% - likely viral cardiomyopathy.
Notified by IMU Microfilm Operator that patient was accepted for transfer to [facility] today.
Plan transfer to [facility] today by ambulance.
== END 2024-02-25 12:05 | disposition short-term general hospital (02) | DRG 871 ==
LOC: IMU 21:26
PROVIDERS: Clinical Nurse Specialist Family Health; Emergency Medicine; Hospitalist; Physician Assistant; ADMITTING PHYSICIAN Hospitalist; ATTENDING PHYSICIAN Internal Medicine; CONSULT PHYSICIAN Internal Medicine; CONSULT PHYSICIAN Internal Medicine Cardiovascular Disease; CONSULT PHYSICIAN Student in an Organized Health Care Education/Training Program; EMERGENCY PHYSICIAN Emergency Medicine
DX: A41.9 Sepsis, unspecified organism (principal); J15.9 Unspecified bacterial pneumonia; J96.01 Acute respiratory failure with hypoxia; E87.20 Acidosis, unspecified; Z68.41 Body mass index [BMI] 40.0-44.9, adult; I42.9 Cardiomyopathy, unspecified; E87.1 Hypo-osmolality and hyponatremia; I42.8 Other cardiomyopathies; F17.290 Nicotine dependence, other tobacco product, uncomplicated; R65.20 Severe sepsis without septic shock; E66.01 Morbid (severe) obesity due to excess calories; D64.9 Anemia, unspecified; F10.10 Alcohol abuse, uncomplicated; Z11.52 Encounter for screening for COVID-19
CPT/HCPCS: 71045; 71046; 71275; 80053; 80061; 80202; 82248; 82962; 83036; 83605; 83735; 83880; 84100; 84145; 84443; 84484; 85025; 85027; 85379; 87040; 87070; 87205; 87449; 87502; 87811; 87899; 93005; 93306; 94640; 94667; 94668; 99285; Q9950; Q9967